=== PATIENT | male | born 1985 | race Caucasian/White ===

== ENCOUNTER 2016-10-07 14:19 | Emergency (ER) | payer OTHER ==
[~2016-10-07] VITALS: Ht 190.5 cm; Wt 127.5 kg
[2016-10-07 15:26] LABS: HEMATOCRIT 44.6 % (38.0-50.0); MCH 30.6 PG (29.0-34.0); MCHC 34.5 G/DL (30.0-36.0); MCV 88.7 FL (86-99); MEAN PLAT.VOLUME 9.6 uM^3 (9.0-12.4); PLATELET COUNT 228 K/uL (156-360); RBC DIS.WIDTH-CV 12.4 % (11.8-14.6); RBC DIS.WIDTH-SD 40.6 % (39-53); RED BLOOD COUNT 5.03 M/uL (4.00-5.50); WHITE BLOOD COUNT 9.7 K/uL (4.1-10.2)
[2016-10-07 15:52] LABS: TROP-I INTERPRETATION NEGATIVE; TROPONIN-I < 0.01 ng/mL (0.0-0.30)
[2016-10-07 15:54] LABS: CHLORIDE 105 mEq/L (99-109); POTASSIUM 4.5 mEq/L (3.7-5.4); SODIUM 139 mEq/L (136-147)
[2016-10-07 15:55] LABS: GLUCOSE 83 mg/dL (70-99)
[2016-10-07 15:57] LABS: ANION GAP 9 MEQ/L (2-14)
[2016-10-07 15:59] LABS: GFR ESTIMATE (CALCULATED) > 59 mL/min/
[2016-10-07 16:00] VITALS: BP 129/76
[2016-10-07 16:00] LABS: UREA NITROGEN (BUN) 13 mg/dL (9-23)
== END 2016-10-07 16:00 | disposition home or self-care (01) ==
LOC: EME 14:19
DX: R07.89 Other chest pain (principal); R00.2 Palpitations; I45.10 Unspecified right bundle-branch block
CPT/HCPCS: 71020; 80048; 84484; 85027; 93005; 99281; 99283